=== PATIENT | female | born 1970 | race Two or more races ===

== ENCOUNTER 2019-11-22 06:00 | Day surgery (SDC) | payer OTHER ==
[2019-11-22] MEDS ORDERED: NEXIUM 24HR20 MG PO (08:08)
[2019-11-22] MEDS ORDERED: CARAFATE1 GM PO (08:09)
== END 2019-11-22 09:35 | disposition home or self-care (01) ==
LOC: CIR.AMB 06:00 → AMB-ENDOS 06:00 → CIR.AMB 08:45 → ADM 08:45 → CIR.AMB 09:35
PROVIDERS: ATTEND Surgery
DX: K29.50 Unspecified chronic gastritis without bleeding (principal); K44.9 Diaphragmatic hernia without obstruction or gangrene